=== PATIENT | female | born 2000 | race Caucasian/White ===

== ENCOUNTER 2021-01-02 22:19 | Emergency (ER) | payer OTHER ==
[2021-01-03 13:49] LABS: SARS-CoV-2 PCR by NAA Not Detected (NotDetected)
== END 2021-01-02 22:45 | disposition home or self-care (01) ==
LOC: MADERS 22:19
DX: J06.9 Acute upper respiratory infection, unspecified (principal); Z20.822 Contact with and (suspected) exposure to COVID-19
CPT/HCPCS: 87635; 99283; U0003; U0005